=== PATIENT | female | born 1995 | race Two or more races ===

== ENCOUNTER 2024-06-15 13:49 | Emergency (ER) | payer MEDICAID ==
[~2024-06-15] VITALS: Ht 162.6 cm; Wt 75.0 kg
[2024-06-15] MEDS: METOCLOPRAMIDE HCL 10MG/2ML VIAL IV ONE (14:24)
[2024-06-15] MEDS: LACTATED RINGERS 1,000 ML IV ONE (14:24)
[2024-06-15 14:48] LABS: BASOPHILS % 1.2 % (0.0-2.0); EOSINOPHILS % 0.2 % (0.0-5.0); HEMATOCRIT. 30.8 % (36.0-48.0); HEMOGLOBIN. 10.5 g/dL (12.0-16.0); LYMPHOCYTES % 9.4 % (20.0-50.0); MEAN CORPUSCULAR HEMOGLOBIN 30.3 pg (28.0-32.0); MEAN CORPUSCULAR HGB CONC 34.1 g/dL (31.0-37.0); MEAN CORPUSCULAR VOLUME 88.9 fL (81.0-99.0); MEAN PLATELET VOLUME 8.4 fl (7.4-10.4); MONOCYTES % 6.1 % (2.0-8.0); NEUTROPHILS % 83.1 % (40.0-76.0); PLATELET 276 x1000/uL (130-400); RED BLOOD CELL COUNT 3.46 mill/uL (4.2-5.4); RED CELL DISTRIBUTION WIDTH 13.3 % (11.6-14.6)
[2024-06-15 14:53] LABS: CHLORIDE 103 mEq/L (98-107); POTASSIUM 3.2 mEq/L (3.5-5.1); SODIUM 134 mEq/L (136-145)
[2024-06-15 14:54] LABS: CARBON DIOXIDE 22 mEq/L (21-32)
[2024-06-15 14:55] LABS: CALCIUM 9.1 mg/dL (8.7-10.4)
[2024-06-15 14:57] LABS: D-DIMER 0.98 mg/L FEU (<0.50); PARTIAL THROMBOPLASTIN TIME 27.6 sec (23.4-31.0); PROTHROMBIN TIME 10.9 sec (9.6-11.0)
[2024-06-15 14:59] LABS: CREATININE 0.6 mg/dL (0.6-1.0); GLUCOSE 127 mg/dL (70-105)
[2024-06-15 15:00] LABS: UREA NITROGEN BLOOD < 5 mg/dL (9-23)
[2024-06-15 15:05] LABS: THYROID STIMULATING HORMONE 0.35 uIU/mL (0.55-4.78)
[2024-06-15 15:16] LABS: B-HCG QUANTITATIVE 9585 mIU/mL (<6); TROPONIN I HIGH SENSITIVITY < 4 ng/L (3.0-34)
[2024-06-15 15:30] LABS: CLARITY URINE CLOUDY (CLEAR); COLOR URINE YELLOW (YELLOW); GLUCOSE URINE NEGATIVE (NEGATIVE); KETONES URINE TRACE (NEGATIVE); LEUKOCYTE ESTERASE URINE TRACE (NEGATIVE); NITRITE URINE NEGATIVE (NEGATIVE); OCCULT BLOOD URINE 1+ (NEGATIVE); PROTEIN URINE NEGATIVE (NEGATIVE); SPECIFIC GRAVITY URINE 1.004 (1.005-1.030); UROBILINOGEN URINE 0.2 E.U./dL (0.2-1.0)
[2024-06-15 15:50] LABS: WBC URINE 0-2 /hpf (0-2)
[2024-06-15 15:51] LABS: BACTERIA URINE 1+; SQUAMOUS EPITHELIAL CELL URINE FEW /lpf (RARE/1+)
[2024-06-15] MEDS: SODIUM CHLORIDE 0.9% (SEPSIS BOLUS) IV ONE (16:37)
[2024-06-15] MEDS: CEFTRIAXONE 1GM/50ML 50 ML IV ONE (16:48)
[2024-06-15 18:20] VITALS: BP 114/70; PULSE 113; RESP 18; TEMP 36.9; O2SAT 98
== END 2024-06-15 19:09 | disposition short-term general hospital (02) ==
LOC: ER 13:49
DX: O99.352 Diseases of the nervous system complicating pregnancy, second trimester (principal); O23.02 Infections of kidney in pregnancy, second trimester; O99.112 Other diseases of the blood and blood-forming organs and certain disorders involving the immune mechanism complicating pregnancy, second trimester; M54.50 Low back pain, unspecified; N89.8 Other specified noninflammatory disorders of vagina; R06.02 Shortness of breath; R00.0 Tachycardia, unspecified; R07.2 Precordial pain; Z3A.27 27 weeks gestation of pregnancy
CPT/HCPCS: 80048; 81003; 84702; 83880; 83605; 84443; 85025; 85379; 85610; 85730; 86850; 86900; 86901; 87040; 84484; 36415; 84145; 71045; 76805; 93005; 96361; 96365; 96375; 99291; J0696; J2765; J7120; J7030; Z7610